=== PATIENT | female | born 1970 | race Two or more races ===

== ENCOUNTER → 2018-02-07 | Outpatient (CLI) | payer OTHER | END | disposition home or self-care (01) | LOC: CFH 12:29 | PROVIDERS: ATTEND Internal Medicine Cardiovascular Disease | DX: Z13.6 Encounter for screening for cardiovascular disorders (principal); R07.9 Chest pain, unspecified | CPT/HCPCS: 76706 ==

== ENCOUNTER → 2018-03-05 | Outpatient (CLI) | payer OTHER | END | disposition home or self-care (01) | LOC: CFH 15:10 | PROVIDERS: ATTEND Internal Medicine Cardiovascular Disease | DX: Z13.6 Encounter for screening for cardiovascular disorders (principal); R07.9 Chest pain, unspecified; Z87.891 Personal history of nicotine dependence | CPT/HCPCS: 93306 ==

== ENCOUNTER 2018-04-05 07:28 | Day surgery (SDC) | payer OTHER ==
[~2018-04-05] VITALS: Ht 162.6 cm; Wt 59.0 kg
[2018-04-05] MEDS ORDERED: SODIUM CHLORIDE 0.9% 1,000 ML IV ONE (07:43)
[2018-04-05 07:51] VITALS: BP 123/64
[2018-04-05] MEDS ORDERED: PLEASE ENTER ALLERGIES MC SCH (08:00)
[2018-04-05] MEDS ORDERED: PLEASE ENTER HEIGHT AND WEIGHT MC SCH (08:00)
[2018-04-05] MEDS ORDERED: LEVO75TA5 PO (08:07)
[2018-04-05] MEDS ORDERED: CHOL40002 PO (08:07)
[2018-04-05] MEDS ORDERED: HYDR10TA4 PO (08:07)
[2018-04-05 08:16] LABS: BASOPHILS # (AUTO) 0.04 x10^3/uL (0-0.1); BASOPHILS % (AUTO) 1 % (0-1); EOSINOPHILS # (AUTO) 0.16 x10^3/uL (0-0.4); EOSINOPHILS % (AUTO) 3 % (1-7); LYMPHOCYTES # (AUTO) 1.52 x10^3/uL (1-3.4); LYMPHOCYTES % (AUTO) 33 % (22-44); MD NO; MEAN CORPUSCULAR HEMOGLOBIN 29.7 pg (27.0-34.8); MEAN CORPUSCULAR HGB CONC 33.5 g/dL (32.4-35.8); MEAN CORPUSCULAR VOLUME 88.8 fL (80-100); MEAN PLATELET VOLUME 7.4 fL (7.4-10.4); MONOCYTES # (AUTO) 0.33 x10^3/uL (0.2-0.8); MONOCYTES % (AUTO) 7 % (2-9); NEUTROPHILS # (AUTO) 2.61 x10^3/uL (1.8-6.8); NEUTROPHILS % (AUTO) 56 % (42-75); PLATELET COUNT 277 x10^3/uL (130-400); RED BLOOD COUNT 4.36 x10^6/uL (3.82-5.3); RED CELL DISTRIBUTION WIDTH 14.4 % (9.6-15.2)
[2018-04-05 08:26] LABS: ANION GAP 7 mmol/L (5-15); CALCIUM 8.4 mg/dL (8.5-10.1); CHLORIDE 110 mmol/L (98-107); CREATININE 0.58 mg/dL (0.55-1.02)
[2018-04-05] MEDS ORDERED: MIDAZOLAM 1 MG/ML, 5ML ONE (09:03)
[2018-04-05] MEDS ORDERED: HEPARIN 1,000 UNITS/ML, 10ML ONE (09:04)
[2018-04-05] MEDS ORDERED: TICAGRELOR 90 MG TABLET ONE (09:04)
[2018-04-05] MEDS ORDERED: FENTANYL PF 100 MCG/2ML ONE (09:04)
[2018-04-05] MEDS ORDERED: VERAPAMIL 2.5 MG/ML, 2ML ONE (09:04)
[2018-04-05] MEDS ORDERED: BIVALIRUDIN 250 MG ONE (09:04)
[2018-04-05] MEDS ORDERED: LIDOCAINE-MPF 1%, 5ML ONE (09:05)
[2018-04-05] MEDS ORDERED: SODIUM CHLORIDE 0.9% 1,000 ML IV SCH (09:48)
== END 2018-04-05 13:17 | disposition home or self-care (01) ==
LOC: CACL 07:28
PROVIDERS: ATTEND Internal Medicine Cardiovascular Disease
DX: I20.0 Unstable angina (principal); I10 Essential (primary) hypertension; Z98.890 Other specified postprocedural states; Z71.6 Tobacco abuse counseling
CPT/HCPCS: 36415; 80048; 85025; 93458; 99156; C1769; C1894; J1644; J2250; J3010; Q9967; J0583